=== PATIENT | female | born 2000 | race Caucasian/White ===

== ENCOUNTER 2023-09-24 18:55 | Inpatient (IN) | payer MEDICAID, SELFPAY ==
[2023-09-24 19:39] VITALS: BMI 30.9
[2023-09-24] MEDS: 0.9% Normal Saline Single 100 ML IV.SOLN. INTRA-UTER (20:03)
[2023-09-24 20:09] VITALS: BP 122/75; PULSE 92; PULSE 99; RESP 18; TEMP 36.9; O2SAT 98
--- NOTE | 2023-09-24 20:12 | HP.PCM.OB_ITS ---
HPI - General General Date of Admission: 09/24/23 HPI Narrative IGLESIA PENA, is a 23 F at 38.2 weeks gestation who presents for scheduled induction of labor for cholestasis. Maternal Data Information FAHEEM Calculator Estimated Delivery Date Method Current WG Current Estimate 10/06/23 Manual 38w 2d [facility] Medical History (Updated 09/24/23 @ 20:20 by Palmira Fortune CNM) Anxiety Autoimmune disease Depression History of depression Seizures Home Medications PNV#14-iron fum-FA#3-gcc-tdeprzdy 27 mg iron-1 mg-300 mg-50 mg capsule 1 cap PO DAILY 09/24/23 [History Last Taken 09/23/23 08:00 1 cap] aspirin 81 mg chewable tablet (Vj Chewable Low Dose Aspirin) 1 tab PO DAILY 09/24/23 [History Last Taken 09/23/23 08:00 1 TAB] Allergy/AdvReac Type Severity Reaction Status Date / Time No Known Allergies Allergy Verified 09/24/23 19:35 ROS Eyes Eyes: Denies blurry vision, change in vision or spots in vision ENT HEENT: Denies dizziness or headache(s) Cardiovascular Cardiovascular: Denies abdominal pain, chest pain or dyspnea Respiratory/Chest Respiratory/Chest: Denies cough, dyspnea, shortness of breath at rest or shortness of breath with exertion Gastrointestinal Gastrointestinal: Denies abdominal pain, diarrhea or vomiting Genitourinary Genitourinary: Denies change in urinary stream, difficulty urinating or dysuria Musculoskeletal Musculoskeletal: Reports none Integumentary Integumentary: Denies rash Neurologic Neurologic: Denies dizziness, headache(s), memory loss or weakness Psychiatric Psychiatric: Reports none Vital Signs Vital Signs Vital Signs: 09/24/23 20:09 09/24/23 20:09 09/24/23 20:09 Pulse Rate 92 Blood Pressure 122/75 H BP Systolic 122 BP Diastolic 75 Pulse Ox 98 Weight Weight: 169 lb 4 oz Body Mass Index (BMI) 30.9 Physical Exam Const alert, oriented x3 and no apparent distress General Appearance: cooperative Orientation / Consciousness: awake Exam Limitations: no limitations HEENT normocephalic Head and Scalp: normal to inspection Eyes General Eye: normal appearance of both eyes Neck full ROM and no lymphadenopathy Lymph Lymphatic: no lymphadenopathy noted Chest inspection of chest normal Resp normal respiratory effort, normal air movement and clear to auscultation bilaterally Effort and Inspection: able to speak in complete sentences and symmetric chest movement Cardio regular rate and regular rhythm GI normal to inspection, nondistended, normoactive bowel sounds Manual OB Exam: presentation cephalic Back/Spine normal ROM Extremity full ROM and no calf tenderness Skin no rashes or lesions noted General Skin Exam: no breakdown Neuro oriented x3 and CN's II-XII intact bilaterally Psych mental status grossly normal and thought process normal Labs Labs Labs: No Data to Display Assessment & Plan (1) 38 weeks gestation of : (2) Cholestasis during : (3) POTS (postural orthostatic tachycardia syndrome): (4) History of depression: (5) History of marijuana use: (6) Encounter for induction of labor: PLAN: Plan Admit to labor and delivery Routine labs GBS negative CE 50/-3 Mtz bulb placed without difficulty and filled with 30 cc N/S Vistaril 25 mg PO PRN every 8 hours for itching as needed Epidural when indicated Pitocin 2mu/min IV and increase per orders Dr. Leigh aware of admission and plan of care and is collaborating physician
[2023-09-24] MEDS: Lactated Ringers 1,000 ML 50 ML IV (20:20)
[2023-09-24] MEDS: Oxytocin 15 Units/NS 250ml 15 UNITS/250 ML IV.SOLN 2 UNITS IV (20:30)
[2023-09-24 20:34] LABS: Absolute Lymphocyte Count 1.75 X10^3/uL (0.83-4.51); Absolute Neutrophil Count 3.8 X10^3/uL (2.0-7.7); Basophil# 0.02 X10^3/uL; Basophil% 0.3 % (0-1); Eosinophil# 0.06 X10^3/uL; Eosinophils% 0.9 % (0-5); Hematocrit 31.2 % (37-47); Hemoglobin 10.1 g/dL (12.0-15.0); Lymphocyte # 1.75 X10^3/ul (0.83-4.51); Lymphocyte % 26.8 % (19-41); Mean Corp Hgb Conc 32.4 g/dL (32-36); Mean Corpuscular Hgb 28.1 pg (27.0-32.0); Mean Corpuscular Volume 86.9 fL (81-99); Mean Platelet Vol. 10.9 fl (6.2-12.0); Monocyte# 0.78 X10^3/uL; NRBC Flagged by Analyzer 0 % (0-5); Neutrophil # 3.82 X10^3/uL (2.7-7.7); Neutrophil % 58.6 % (47-70); Platelet Count 332 K/mm3 (150-450); RBC Distribution Width CV 14.3 % (11.6-14.6); RBC Distribution Width SD 45.4 fl (35.1-43.9); Red Blood Count 3.59 M/mm3 (4.2-5.4); White Blood Count 6.5 K/mm3 (4.4-11.0)
[2023-09-24 21:10] LABS: Syphilis Antibodies Non-reactive
[2023-09-24 21:14] VITALS: BP 110/67; PULSE 100; RESP 18; TEMP 36.9; O2SAT 98
[2023-09-24 21:55] LABS: Amphetamine Urine VISTA NEGATIVE (<1000 ng/mL); Barbiturate Urine VISTA NEGATIVE (< 200 ng/mL); Benzodiazepine Urine VISTA NEGATIVE (< 200 ng/mL); Cocaine Urine VISTA NEGATIVE (< 300 ng/mL); Ecstacy Urine VISTA NEGATIVE (< 500 ng/mL); Methadone Urine VISTA NEGATIVE (< 300 ng/mL); PCP Urine VISTA NEGATIVE (< 25 ng/mL); THC Urine VISTA NEGATIVE (< 50 ng/mL); Vista UDS pH Range 6
[2023-09-24 22:07] VITALS: BP 98/58; PULSE 89; RESP 16; TEMP 36.2; O2SAT 98
[2023-09-24 22:55] VITALS: BP 111/70; PULSE 82; RESP 17; TEMP 37.2; O2SAT 98
[2023-09-25] VITALS (53 sets, daily range): BP systolic 98–131; BP diastolic 7–87; PULSE 72–126; RESP 2–20; TEMP 36.2–37.5; O2SAT 92–100
[2023-09-25] MEDS: LACTATED RINGERS 500 ML 999 ML IV ×3 (00:09→10:42)
[2023-09-25] MEDS: fentaNYL-bupivacaine (epidural) 100 ML BAG EPIDURAL ×3 (01:30→14:49)
[2023-09-25] MEDS: Lactated Ringers 1,000 ML 200 ML IV ×3 (04:25→14:48)
[2023-09-25] MEDS: Ondansetron 4 MG/2 ML Vial IV (06:30)
--- NOTE | 2023-09-25 06:49 | PN.OBGYN_ITS ---
Subjective Subjective Patient seen at bedside. Comfortable with epidural. Objective Data Objective Data Vital Signs: Vital Signs Temp Pulse Resp BP Pulse Ox 98.6 F 93 16 99/57 L 97 09/25/23 06:18 09/25/23 06:18 09/25/23 06:18 09/25/23 06:18 09/25/23 06:17 Weight: 169 lb 4 oz Body Mass Index (BMI) 30.9 Intake & Output: Intake and Output for Last 24 Hours 09/23/23 09/24/23 09/25/23 23:59 23:59 23:59 Intake Total 9. / 9.07 1893.44 / 1893.44 Output Total 450 / 450 Balance 9. / .07 1443.44 / 1443.44 Lab / Micro Data 09/24/23 20:20 Labs: Laboratory Results - last 24 hr 09/24/23 20:20: WBC 6.5, RBC 3.59 L, Hgb 10.1 L, Hct 31.2 L, MCV 86.9, MCH 28.1, MCHC 32.4, RDW Std Deviation 45.4 H, RDW Coeff of Kae 14.3, Plt Count 332, MPV 10.9, Immature Gran % (Auto) 1.400 H, Neut % (Auto) 58.6, Lymph % (Auto) 26.8, [place] % (Auto) 12.0 H, Eos % (Auto) 0.9, Baso % (Auto) 0.3, Absolute Neuts (auto) 3.8, Absolute Lymphs (auto) 1.75, Nucleated RBC % 0, Syphilis Total Ab Non-re active, Blood Type B POSITIVE, Antibody Screen NEGATIVE 09/24/23 21:30: Urine Opiates Screen NEGATIVE, Urine Methadone Screen NEGATIVE, Ur Barbiturates Screen NEGATIVE, Ur Phencyclidine Scrn NEGATIVE, Ur Amphetamines Screen NEGATIVE, MDMA (Ecstasy) Screen NEGATIVE, U Benzodiazepines Scrn NEGATIVE, Urine Cocaine Screen NEGATIVE, U Cannabinoids Screen NEGATIVE, Ur Drug Screen Comment ROS Eyes Eyes: Denies blurry vision, change in vision or spots in vision ENT HEENT: Denies dizziness or headache(s) Cardiovascular Cardiovascular: Denies abdominal pain, chest pain or dyspnea Respiratory/Chest Respiratory/Chest: Denies cough, dyspnea, shortness of breath at rest or shortness of breath with exertion Gastrointestinal Gastrointestinal: Denies abdominal pain or diarrhea Genitourinary Genitourinary: Denies change in urinary stream, difficulty urinating or dysuria Musculoskeletal Musculoskeletal: Reports none Integumentary Integumentary: Denies rash Neurologic Neurologic: Denies headache(s), memory loss or weakness Physical Exam Const alert and no apparent distress General Appearance: cooperative and comfortable Exam Limitations: no limitations HEENT normocephalic Eyes General Eye: normal appearance of both eyes Neck full ROM General: normal visual inspection Chest Chest: symmetrical chest wall rise Resp normal respiratory effort and normal air movement Effort and Inspection: symmetric chest movement Auscultation: clear to auscultation bilaterally Cardio regular rate and regular rhythm GI normal to inspection, nondistended, normoactive bowel sounds Back/Spine normal ROM Extremity full ROM and no calf tenderness General Extremity: normal exam except as noted Skin no rashes or lesions noted Neuro CN's II-XII intact bilaterally Psych mental status grossly normal Assessment & Plan (1) Encounter for induction of labor: (2) History of marijuana use: (3) History of depression: (4) POTS (postural orthostatic tachycardia syndrome): (5) Cholestasis during : (6) 38 weeks gestation of : PLAN: Plan Cat. 1 tracing CE /-2 AROM for clear fluid IUPC placed Pitocin at 10 mu/min- continue to increase per policy Anticipate
[2023-09-25] MEDS: Acetaminophen 500 MG Tablet PO (16:27)
[2023-09-25] MEDS: CHLORHEXIDINE GLUC 2% CLOTH 1 EACH TOWELETTE TOPICAL (16:30)
--- NOTE | 2023-09-25 16:41 | PN.OBGYN_ITS ---
Subjective Subjective Pt complete and pushing for 4 hours. +1 without further progress. Cat I-II tracing. Maternal exhaustion and desires no further attempt at vaginal delivery. Effort has been complicated by STEVENS. Risks and benefits of a discussed with pt. including injury to other organs, infection and bleeding. Objective Data Objective Data Vital Signs: Vital Signs Temp Pulse Resp BP Pulse Ox 99.5 F H 95 16 127/66 H 97 09/25/23 14:11 09/25/23 14:16 09/25/23 14:11 09/25/23 14:12 09/25/23 14:16 Weight: 76.771 kg Body Mass Index (BMI) 30.9 Intake & Output: Intake and Output for Last 24 Hours 09/23/23 09/24/23 09/25/23 23:59 23:59 23:59 Intake Total 9.07 / 9.07 4301.94 / 4301.94 Output Total 450 / 450 Balance 9.07 / 9.07 3851.94 / 3851.94 Lab / Micro Data Attestation: I reviewed the patient's lab results. 09/24/23 20:20 Labs: Laboratory Results - last 24 hr 09/24/23 20:20: WBC 6.5, RBC 3.59 L, Hgb 10.1 L, Hct 31.2 L, MCV 86.9, MCH 28.1, MCHC 32.4, RDW Std Deviation 45.4 H, RDW Coeff of Kae 14.3, Plt Count 332, MPV 10.9, Immature Gran % (Auto) 1.400 H, Neut % (Auto) 58.6, Lymph % (Auto) 26.8, [place] % (Auto) 12.0 H, Eos % (Auto) 0.9, Baso % (Auto) 0.3, Absolute Neuts (auto) 3.8, Absolute Lymphs (auto) 1.75, Nucleated RBC % 0, Syphilis Total Ab Non- reactive, Blood Type B POSITIVE, Antibody Screen NEGATIVE 09/24/23 21:30: Urine Opiates Screen NEGATIVE, Urine Methadone Screen NEGATIVE, Ur Barbiturates Screen NEGATIVE, Ur Phencyclidine Scrn NEGATIVE, Ur Amphetamines Screen NEGATIVE, MDMA (Ecstasy) Screen NEGATIVE, U Benzodiazepines Scrn NEGATIVE, Urine Cocaine Screen NEGATIVE, U Cannabinoids Screen NEGATIVE, Ur Drug Screen Comment Physical Exam Const alert and oriented x3 General Appearance: cooperative HEENT normocephalic and head/scalp atraumatic Resp normal respiratory effort Bladder / Kidney Exam: catheter in place External Female Exam: normal appearance of the urethra OB / External & Speculum: other 10/100/+1 caput Extremity normal to inspection Neuro oriented x3 and CN's II-XII intact bilaterally Psych mental status grossly normal Assessment & Plan (1) Cholestasis during : (2) 38 weeks gestation of : (3) Encounter for induction of labor: PLAN: Plan Failure to descend- decision for for primary c/s
[2023-09-25] MEDS: Sodium Citrate/Citric Acid 30 ML UDC PO (16:47)
--- NOTE | 2023-09-25 17:54 | OP.PCM_ITS ---
Assessment & Plan (1) Failure of descent in labor, delivered, current hospitalization: PLAN: primary (2) S/P primary low transverse : Maternal Data Information FAHEEM Calculator Estimated Delivery Date Method Current WG Current Estimate 10/06/23 Manual 38w 3d Final FAHEEM: 10/06/23 Gestational age: 38+3 Doctor Who Attended Delivery: Bree Jaimes Details Operative Information Date of Procedure: 09/25/23 Pre-Operative Diagnosis: Failure to descend Post-Operative Diagnosis: Same, asynclytic and transverse Indications for : Failure of Descent Indications Narrative: IOL for cholestasis. Progressed to complete with Pitocin. Pushed for 4 hours without descent past +1 station Procedure Type: low transverse upfitter #1: Colleen Oreilly Type of Anesthesia: Epidural Anesthesiologist: Hill Caraballo Antibiotic Given: Ancef 2 grams IV x1 and Zithromax 500 mg/5 mL X1 Drain: Mtz to straight drain Estimated Blood Loss: 300 cc Fluids Replaced: 1000 Procedure Start Time: 17:16 Procedure Stop Time: 18:02 Time of Delivery: 17:24 Findings Description of Procedure: Under epidural anaesthetic with a Mtz catheter inserted, the patient was prep ped and draped in the usual sterile fashion in the supine position with a leftward tilt. A Pfannenstiel incision was made. The incision was carried down to the fascia with cautery. The fascia was incised transversely and dissected off the rectus muscle using sharp dissection. Electrocautery was used for hemostasis. The peritoneum was opened taking care not to injure the bladder. The vesicouterine peritoneum was dissected off the lower uterine segment. The lower segment was assessed and a low transverse incision was made. The uterine incision was extended bluntly. The fetus was presenting as a vertex, transverse and asynclitic. The head was delivered with some difficulty and the rest of the body followed easily. The cord was clamped twice and cut and [facility] and [facility]. Cord gases were attempted but could not be obtained. The placenta was then delivered with uterine massage. The uterus was explored and was empty of all tissue. The uterus was exteriorized for better visualization. The uterine incision was then closed in two layers with 0-Vicryl suture. The first layer was locking and the second was imbricating. Tubes and ovaries were examined and appeared normal. The peritoneum was closed with a running Monocryl stitch. The fascia was closed with Vicryl 0 in a running unlocked fashion. The skin was then reapproximated with a running Vicryl subcuticular suture). At the end of the procedure all sponges, instruments, and sharps were counted and correct. Estimated blood loss was 300 ml. The patient and baby were taken to the recovery in stable condition. A female baby 1802 were 2, 5 and 10 at 1, 5 and 10 minutes respectively. Presentation: Positive for Vertex Amniotic Membrane Rupture Type: Artificial Time of Membrane Ruptured: 0636 Amniotic Fluid Description: Clear Placental Delivery Description: Expressed Placenta Disposition: [facility] Cord Vessel Description: 3 Vessels Cord Entanglement: None Nuchal Cord Compression: Without compression Cord Gases: ABG (attempted but could not be collected) Infant A Gender: Female (1 minute): 2 (5 minute): 5 (10 min 10) Delayed Cord Clamping: No
[2023-09-25] MEDS: Cefazolin 2 GM in 0.9% Normal Saline (100mL Bag) 100 ML IV (18:26)
[2023-09-25] MEDS: Oxytocin 15 Units/NS 250ml 15 UNITS/250 ML IV.SOLN 83 UNITS IV (18:57)
[2023-09-25] MEDS: Ketorolac 30 MG/ML Syringe IV (18:57)
[2023-09-25] MEDS: Lactated Ringers 1,000 ML 100 ML IV (21:42)
[2023-09-25] MEDS: Acetaminophen 500 MG Tablet 1000 MG PO (21:45)
[2023-09-26] VITALS (10 sets, daily range): BP systolic 94–110; BP diastolic 58–76; PULSE 75–115; RESP 14–18; TEMP 36.2–37.1; O2SAT 95–97
[2023-09-26] MEDS: Ketorolac 30 MG/ML Syringe IV (00:16)
[2023-09-26] MEDS: Acetaminophen 500 MG Tablet 1000 MG PO ×4 (04:16→23:55)
[2023-09-26] MEDS: Ibuprofen 600 MG Tablet PO ×4 (06:30→23:54)
--- NOTE | 2023-09-26 06:37 | NURSING ---
Verbal conversation with Dr. Adams about patient infiltrated IV and provider states we can begin oral motrin at this time.
--- NOTE | 2023-09-26 06:40 | PCM.PN.OB ---
Subjective Subjective Doing well. Ambulating and voiding without difficulty. Good voiding. Itching improved. Mostly on feet now. CBC pending this am Objective Data Objective Data Vital Signs: Vital Signs Temp Pulse Resp BP Pulse Ox O2 Del Method 98.2 F 98 16 94/62 95 Room Air 09/26/23 05:43 09/26/23 05:43 09/26/23 05:43 09/26/23 05:43 09/26/23 05:43 09/26/23 05:43 Oxygen Delivery Method Room Air Weight: 76.771 kg Body Mass Index (BMI) 30.9 Intake & Output: Intake and Output for Last 24 Hours 09/24/23 09/25/23 09/26/23 23:59 23:59 23:59 Intake Total 9.07 / 9.07 5697.07 / 5697.07 836.67 / 836.67 Output Total 1500 / 1500 400 / 400 Balance 9.07 / 9.07 4197.07 / 4197.07 436.67 / 436.67 Lab / Micro Data 09/24/23 20:20 ROS Constitutional Constitutional: Denies fatigue, fever(s) or malaise Eyes Eyes: Denies change in vision ENT HEENT: Denies dizziness or headache(s) Cardiovascular Cardiovascular: Denies chest pain, dyspnea or lightheadedness Respiratory/Chest Respiratory/Chest: Denies cough or dyspnea Gastrointestinal Gastrointestinal: Denies change in bowel habits Genitourinary Genitourinary: Denies burning urination or genital lesions Integumentary Integumentary: Denies rash Neurologic Neurologic: Denies confusion, dizziness, headache(s), numbness or weakness Physical Exam Const alert General Appearance: cooperative GI GI Narrative: soft, moderate distention, fundus firm, appropriately tender. Abdominal bandage clean dry and intact Assessment & Plan (1) S/P primary low transverse : PLAN: CBC pending (2) Failure of descent in labor, delivered, current hospitalization: (3) Cholestasis during : QUALIFIERS: Trimester: third trimester Qualified Code(s): O26.613 - Liver and biliary tract disorders in , third trimester; K83.1 - Obstruction of bile duct (4) POTS (postural orthostatic tachycardia syndrome): PLAN: Plan Routine post care.
[2023-09-26 07:05] LABS: Hematocrit 26.9 % (37-47); Hemoglobin 8.7 g/dL (12.0-15.0); Mean Corp Hgb Conc 32.3 g/dL (32-36); Mean Corpuscular Hgb 28.4 pg (27.0-32.0); Mean Corpuscular Volume 87.9 fL (81-99); Mean Platelet Vol. 10.7 fl (6.2-12.0); Platelet Count 238 K/mm3 (150-450); RBC Distribution Width CV 14.7 % (11.6-14.6); RBC Distribution Width SD 46.9 fl (35.1-43.9); Red Blood Count 3.06 M/mm3 (4.2-5.4); White Blood Count 17.1 K/mm3 (4.4-11.0)
[2023-09-26] MEDS: Iron Polysaccharide Complex 150 MG CAPSULE PO (11:00)
[2023-09-26] MEDS: Senna/Docusate Sodium 1 Tablet PO (11:00)
--- NOTE | 2023-09-26 15:07 | CASEMGMT ---
Social Work Assessment Labor and Delivery Unit Patient Address:[address] [place] [id number] Phone number: [phone] Date of Referral: 09/26/23 Time of Referral:? [id number] Referred By: Palmira Fortune Date of Intervention: ??09/26/23 Time of Intervention:? 1400 Reason for Referral:? hx of anxiety, depression, THC Sw completed chart review and acknowledges social work consult. Sw presented to bedside and introduced self to mother of baby (MOB- Shayna) and father of baby (FOB- Yue). Sw explained reason for sw involvement and completed psychosocial assessment. History obtained from: medical records, MOB and FOB Household composition: Currently residing in the home is MOB, FOB and now baby. Parents deny any issues or concerns with their housing at this time. Patient's parent/guardian status:? ?MOB states that she and YISEL have known each other for a long time. FOB states that he was living a life that he was not proud of, and even though he knew that MOB wanted to be in a relationship with him he was not ready. YISEL states that he worked on himself and then got reconnected with MOB. They have been together for 2 years. [place] baby is first baby for both parents. Medical History: ?LULU is 23 year old female who is 1, para 0- now 1 following labor and delivery of . LULU received routine care during with [facility]. LULU presented to hospital and delivered baby via at 38 weeks gestation on 09/25/23. [place] baby, Olivia was born weighing 6lb 15oz and her apgars were 2, 5 and 10 at 1, 5 and 10 minutes of life, respectfully. LULU states that breast feeding is going well and that baby will be followed by Dr. Burgos for pediatrics. Educational Status:?MOB states that she graduated from high school and obtained training in a trade. FOB states that he did not graduate high school, but did obtain his GED while doing time in prison. FOB states that he also started working on a degree while incarcerated, but has not continued to pursue it. No issues with reading, learning or comprehension reported. Financial Status: Both parents are gainfully employed outside of the home. 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 YISEL works for [employer]. Supplies:?? Parents report that they have obtained all necessary baby supplies, including: car seat, safe sleep space, clothes, diapers and wipes. Childcare/Caregiver(s):?LULU will be the primary caregiver to baby along with YISEL when he is not at work. When both parents are working they have grandparents that will be able to assist with childcare needs. Transportation:??LULU drives and has reliable means of transportation. Programs/Agencies Involved: ?LULU is connected to services provided by [employer], insurance and WIC. ? Children Services/Legal Issues:??? No history of children services involvement. No issues or concerns warranting referral to be made at this time. - YISEL states that he was incarcerated for two years in [facility] for an incident that happened with an ex-girlfriend. YISEL states that he defended himself in a dispute, but because he did not plead not-guilty he was charged and had to prison time. YISEL states that he completed probation and his record will be expunged in March of this year. Behavioral Health Issues: ??Mental Health History:?YISEL denies mental health history. LULU states that she has been diagnosed with anxiety and depression when she was in high school. LULU also disclosed that while in high school she had thoughts of suicide and one suicidal attempt, at which point she was connected to mental health resources and supports and got help. LULU states that those mental health issues were situational and she has not struggled with anything like that since that time.? Substance Use History:?LULU states that she does not use drugs or alcohol. LULU states that at one time during her second trimester she took a gummy that she thought would help her with her nausea, but it was not until after she took it that she discovered it was THC. LULU states that she was also prescribed zofran to help with nausea. ? Family History:??Parents deny family history of addiction/ drug use or significant mental health diagnoses. ??? Drug Screens: Maternal drug screen at delivery was negative, baby drug screen at delivery was also negative. ?? Family/Social Stressors:? Parents deny any any issues or concerns at this time. Support Systems: Parents report that both sets of grandparents are supportive along with siblings and friends. Depression/Shaken Baby/Safe Sleeping:? Sw educated parents of signs and symptoms of baby blues and depression and anxiety. Parents express understanding. MOB states that she feels good at this time and knows that if she were to struggle with her mental health during this period FOB would be able to recognize that and would know how to help and support her. Sw educated parents on shaken baby prevention and ABCs of safe sleep. Parents express understanding. ASSESSMENT:? MOB and baby are admitted following labor and delivery. MOB and FOB both participated in completion of psychosocial assessment. FOB was open regarding his past and criminal history. FOB states that MOB and baby are the best thing to happen to him. MOB has obtained all necessary baby supplies and has natural supports in place. Parents were receptive to involvement and support. Safe Plan of Care for related to substance use:? MOB states that she does not use drugs/ substances prior to getting , and does not have any plans or intentions to use anything now that baby has been born. PLAN:?If baby's meconium results are positive for THC referral to [facility] will be made. MOB and baby to be discharged when medically ready. ?No other services requested or indicated. Toni Saxena, INDUSTRIAL CONVEYOR BELT REPAIRER, LAND LAW EXAMINER
[2023-09-27 02:00] VITALS: BP 102/70; PULSE 92; RESP 14; TEMP 36.3; O2SAT 97
[2023-09-27] MEDS: Ibuprofen 600 MG Tablet PO (06:06)
[2023-09-27] MEDS: Acetaminophen 500 MG Tablet 1000 MG PO (06:06)
[2023-09-27 08:14] VITALS: BP 112/68; PULSE 80; RESP 16; TEMP 36.3; O2SAT 98
[2023-09-27] MEDS: Senna/Docusate Sodium 1 Tablet PO (09:59)
[2023-09-27] MEDS: Iron Polysaccharide Complex 150 MG CAPSULE PO (09:59)
--- NOTE | 2023-09-27 11:32 | PCM.PN.OB ---
Subjective Subjective Pain controlled Objective Data Objective Data Vital Signs: Vital Signs Temp Pulse Resp BP Pulse Ox O2 Del Method 97.3 F L 80 16 112/68 98 Room Air 09/27/23 08:14 09/27/23 08:14 09/27/23 08:14 09/27/23 08:14 09/27/23 08:14 09/27/23 08:14 Oxygen Delivery Method Room Air Weight: 169 lb 4 oz Body Mass Index (BMI) 30.9 Intake & Output: Intake and Output for Last 24 Hours 09/25/23 09/26/23 09/27/23 23:59 23:59 23:59 Intake Total 5697.07 / 5697.07 836.67 / 836.67 Output Total 1500 / 1500 1400 / 1400 Balance 4197.07 / 4197.07 -563.33 / -563.33 Lab / Micro Data 09/26/23 06:55 Physical Exam Const alert, oriented x3 and no apparent distress HEENT normocephalic GI soft to palpation, non-tender and non-distended GI Narrative: fundus firm, mid & below umbilicus Incision - bandage c/d/i Extremity normal to inspection and no calf tenderness Assessment & Plan (1) S/P primary low transverse : PLAN: Plan D/c home
--- NOTE | 2023-09-27 11:33 | PCM.DC.SUM ---
Providers Date of Admission: 09/24/23 Date of Discharge: 09/27/23 Primary Care Physician: Salome Primary Care Phys Reason For Visit: PRIMARY Diagnosis Discharge Diagnosis (1) S/P primary low transverse : Status: Acute Code(s): Z98.891 - History of uterine scar from previous surgery Plan D/c home Medications at Discharge Home Medications PNV#14-iron fum-FA#9-znp-rfcxylix 27 mg iron-1 mg-300 mg-50 mg capsule 1 cap PO DAILY 09/24/23 acetaminophen 500 mg tablet 1,000 mg (2 x 500 mg) PO Q6H #30 tabs 09/27/23 ibuprofen 600 mg tablet 600 mg PO Q6H #30 tabs 09/27/23 polysaccharide iron complex 150 mg iron capsule (Ferrex) 150 mg PO DAILY #30 caps 09/27/23 Hospital Course Operations section Summary of Care Provided Minutes Spent on Discharge: 15 Weight / BMI Weight Weight: 169 lb 4 oz Body Mass Index (BMI) 30.9 ABG / Lab / Microbiology Data 09/26/23 06:55 D/C Instructions Discharge Diet: No restrictions Discharge Activity: May Shower May resume sexual activity in: 6 weeks Weight Bearing Status: Weight bearing as tolerated Call your doctor if your incision/area has: Continuous Slow Oozing, Sudden Increased Bleeding, Increased Pain/ Swelling, Increased Redness, Foul Smelling Discharge and Swelling at the incision site Call your doctor if you observe: Fever of 101 or Higher, Coldness, Increased Pain, Change in Color, Inability to urinate, Inability to have a bowel movement, Using more than 1 pad per hour, Shortness of breath, Dizziness, Fainting spells, Chest pain, Increased palpitations (irregular heartbeat), Calf discomfort and Uncontrolled pain Suture Line Care: Avoid Pulling/Pushing and Avoid Pinching/Bending Remove Dressing in: 1 week Cleanse incision/area with: Soap & Water Please Follow Up With: Kaila Adams MD When: Follow up in 2 and 6 weeks for visits. Meaningful Use Info Meaningful Use Diagnoses (Choose all that apply): None applicable Discharge Plan Admission Admit Date/Time: 09/24/23 18:55 Primary Reason for Your Visit: section Attending Provider: Palmira Fortune Primary Care Provider: Care Physician,No Primary Discharge Orders/Prescriptions Prescriptions: New polysaccharide iron complex [Ferrex 150] 150 mg iron Capsule 150 mg PO DAILY Qty: 30 1RF acetaminophen 500 mg Tablet 1,000 mg PO Q6H Qty: 30 0RF ibuprofen 600 mg Tablet 600 mg PO Q6H Qty: 30 0RF Continued PNV #14-iron-FA#2-wkp-majnvocq 27 mg iron-1 mg -300 mg-50 mg capsule 1 cap PO DAILY Discontinued aspirin [Vj Chewable Aspirin] 81 mg tablet,chewable 1 tab PO DAILY Referrals / Follow Up: Care Physician,No Primary [Primary Care Provider] - Disposition Disposition (needs filled in before D/C Order can be placed): Home, Self Care
== END 2023-09-27 12:18 | disposition home or self-care (01) | DRG 540 ==
PROVIDERS: Obstetrics & Gynecology; Admitting Provider Advanced Practice Midwife; Visit Provider Advanced Practice Midwife
DX: O62.1 Secondary uterine inertia (principal); G90.A Postural orthostatic tachycardia syndrome [POTS]; K76.89 Other specified diseases of liver; E78.79 Other disorders of bile acid and cholesterol metabolism; O99.354 Diseases of the nervous system complicating childbirth; O26.62 Liver and biliary tract disorders in childbirth; O75.81 Maternal exhaustion complicating labor and delivery; O61.0 Failed medical induction of labor; Z37.0 Single live birth; Z3A.38 38 weeks gestation of pregnancy
CPT/HCPCS: 59025; 59050; 80307; 85025; 85027; 86780; 86850; 86900; 86901; 99221; J7120; G0378; J2405